=== PATIENT | male | born 1980 | race Caucasian/White ===

== ENCOUNTER 2016-08-22 13:02 | Emergency (ER) | payer OTHER ==
[~2016-08-22] VITALS: Ht 167.6 cm; Wt 65.8 kg
[2016-08-22 13:10] VITALS: BP 116/73
--- NOTE | 2016-08-22 15:33 | ED PSYCHIATRIC COMPLAINT ---
History of Present Illness General Chief Complaint: ETOH/Drug Related Complaint Stated Complaint: REFERRAL TO HEROIN DETOX Source: patient Exam Limitations: no limitations Vital Signs & Intake/Output Vital Signs & Intake/Output Vital Signs Date Time Temp Pulse Resp B/P Pulse O2 O2 Flow FiO2 Ox Delivery Rate 08/22 1310 97.6 89 20 116/73 99 Room Air Allergies Coded Allergies: No Known Allergies (08/22/16) Reconcile Medications No Known Home Medications Triage Note: TRIAGE: PT TO ER C/C REQUESTING DETOX FROM HEROIN. LAST USED THIS MORNING, 2 BAGS. ADMITS TO DAILY USE X 4 MONTHS APPROXIMATELY 3-4 BAGS. -SI. -HI. ADMITS TO OCCASIONAL ETOH AND MARAJUANA. LAST DRINK 1.5 WKS AGO AND LAST USED MARAJUANA 2-3 DAYS AGO. PT CALM AND COOPERATIVE AT TRIAGE. Triage Nurses Notes Reviewed? yes HPI: Patient presents for evaluation of heroin dependence. Patient states he uses about 3 bags of heroin per day. He also occasionally smokes marijuana. He denies alcohol use. He states his heroin addiction as severe and this is why he feels he needs help. he denies SI or HI. Past History Travel History Traveled to [place] past 21 day No Medical History Any Pertinent Medical History? 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 No Review of Systems Review of Systems Constitutional: Reports: no symptoms. EENTM: Reports: no symptoms. Respiratory: Reports: no symptoms. Cardiovascular: Reports: no symptoms. GI: Reports: no symptoms. Genitourinary: Reports: no symptoms. Musculoskeletal: Reports: no symptoms. Skin: Reports: no symptoms. Neurological/Psychological: Reports: no symptoms. Hematologic/Endocrine: Reports: no symptoms. Immunologic/Allergic: Reports: no symptoms. All Other Systems: Reviewed and Negative Physical Exam Physical Exam General Appearance: see below Neurological/Psychiatric: see below Comments: Gen.: Well-nourished, well-developed, no acute respiratory distress. Head: Normocephalic, atraumatic. Eyes: Normal inspection bilaterally Ears: Normal inspection bilaterally Nose: Normal inspection Throat/mouth : Moist mucosa Neck: Supple, full range of motion, no goiter Heart: Regular rate and rhythm, no murmurs rubs or gallops Lungs: Clear to auscultation bilaterally with normal air entry Chest: Nontender Back: Normal range of motion Abdomen: Soft, nontender, nondistended, normal bowel sounds Extremities: Normal range of motion grossly, equal radial pulses, no cyanosis clubbing or edema Neurologic: Cranial nerves grossly intact, speech is clear Skin: warm and dry Psychiatric: Calm, cooperative, no apparent delusions or hallucinations SAD PERSONS Done? patient not suicidal Progress Differential Diagnosis: drug intoxication, drug overdose, drug withdrawal Plan of Care: Orders Procedure Date/time Status URINE DRUG SCREEN FOR ER ONLY 08/22 1411 Complete Laboratory Tests 08/22/16 1415: Urine Opiates Screen > 4000.00 H, Methadone Screen < 40, Barbiturate Screen < 60, Ur Phencyclidine Scrn < 6.00, Amphetamines Screen < 100, U Benzodiazepines Scrn < 85, Urine Cocaine Screen < 50, Urine Cannabis Screen > 80.00 H Departure Departure Disposition: HOME OR SELF CARE Condition: Stable Clinical Impression Primary Impression: Heroin abuse Referrals: NICOLAS GROVES DO, MD,NIKKY Johnson PATIENT HAS NO PRIMARY CARE DR (PCP/Family) ERICK Lacy MD Additional Instructions: Contact one of the detox programs on the list provided as soon as possible for help with your addiction. Contact one of the primary care doctors listed for general medical evaluation. Return if any concerns or sudden worsening. Departure Forms: Customer Survey General Discharge Information Prescriptions: Current Visit Scripts No Known Home Medications
== END 2016-08-22 15:50 ==
LOC: ERH 13:02
DX: F11.10 Opioid abuse, uncomplicated (principal)
CPT/HCPCS: 80307